=== PATIENT | female | born 1930 | race Caucasian/White ===

== ENCOUNTER 2016-10-31 08:17 | Emergency (ER) | payer MEDICARE ==
[2016-10-31 08:22] VITALS: TEMP 99; BMI 29.2
--- NOTE | 2016-10-31 09:14 | DIRPT ---
CLINICAL DATA: Fall today going to the bathroom. Small laceration to forehead. EXAM: CT HEAD WITHOUT CONTRAST TECHNIQUE: Contiguous axial images were obtained from the base of the skull through the vertex without intravenous contrast. COMPARISON: 05/25/2016 FINDINGS: Soft tissue swelling over the forehead. No underlying calvarial abnormality. There is atrophy and chronic small vessel disease changes. No acute intracranial abnormality. Specifically, no hemorrhage, hydrocephalus, mass lesion, acute infarction, or significant intracranial injury. No acute calvarial abnormality. Visualized paranasal sinuses and mastoids clear. Orbital soft tissues unremarkable. IMPRESSION: No acute intracranial abnormality. Atrophy, chronic microvascular disease. Electronically Signed By: Casper Haddad M.D. On: 10/31/2016 09:12
--- NOTE | 2016-10-31 09:23 | EDPRACDOC ---
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 Pain Severity: Reports: Moderate Injuries/Pain Location: Reports: head Reason for Fall: Reports: lost balance Loss of Consciousness: no loss of consciousness Modifying Factors: improves with: movement Associated Symptoms (Fall): Reports: headache. Denies: abdominal pain, chest pain, confusion, dizziness, lightheadedness, muscle spasms, nausea/vomiting, neck pain, ringing in ears, seizures, shortness of breath, slurred speech, trouble walking, vision changes Allergies/Adverse Reactions: Allergies No Known Allergies Allergy (Verified 10/31/16 08:19) Home Medications: Ambulatory Orders Aspirin (Enteric Coated) [Halfprin] 81 mg PO DAILY 06/09/14 Atorvastatin [Lipitor 20 mg Tablet] 40 mg PO HS 06/09/14 Citalopram (anti-depressant) [Celexa] 40 mg PO HS 06/09/14 Metoprolol Succinate [Toprol Xl] 25 mg PO DAILY 06/09/14 Mirtazapine [Remeron] 15 mg PO HS 06/09/14 Nitroglycerin [Nitrostat] 0.4 mg SL [id number] PRN 06/09/14 Omeprazole [Prilosec] 20 mg PO BID 07/07/14 Cholecalciferol (Vitamin D3) [Vitamin D3] 5,000 unit PO DAILY 05/16/15 Fluticasone Propionate [Flovent Hfa-110] 2 puff INH BID 04/17/16 Furosemide [Lasix] 40 mg PO BID 04/17/16 Oxybutynin [Ditropan] 5 mg PO BID 04/17/16 Tramadol HCl [Ultram] 50 mg PO BID 05/17/16 Gabapentin [Neurontin] 200 mg PO TID #180 capsule 05/27/16 Acetaminophen [Tylenol] 650 mg PO QID PRN 09/12/16 Albuterol Sulfate 2.5 mg NEB Q6H 09/12/16 Alendronate Sodium [Fosamax] 70 mg PO MO 09/12/16 L. Rhamnosus GG/Inulin [Culturelle Capsule] 1 cap PO BID 09/12/16 Ondansetron HCl [Zofran] 4 mg PO Q6H PRN 09/12/16 POTASSIUM CHLORIDE Tablet [K-DUR 20 mEq Tablet*] 20 meq PO DAILY 09/12/16 Alprazolam [Xanax] 0.25 mg PO BID PRN #60 tablet 09/19/16 Oxycodone Immediate Release [Oxycodone Immediate Release (OxyIR)] 5 mg PO Q6H PRN #60 tablet 09/19/16 Carbidopa/Levodopa [Carbidopa-Levo ER 25-100 Tab] 1 tab PO DAILY 10/31/16 Magnesium Hydroxide [Milk of Magnesia] 30 ml PO DAILY PRN 10/31/16 ED Past Medical History - History Reviewed Yes Nurses notes reviewed and agree except as marked - Patient Medical History Neurological History: Reports: Dementia, Toxic Encephalopathy (History of) Cardiac History: Reports: Coronary Artery Disease, Atrial Fibrillation, Hypertension, Congestive Heart Failure (Echo from 05/17/2015 revealed diastolic failure with an EF of 65-70%.), Heart Attack (2012), Cardiac Catheterization ( with stent placement), Hypercholesterolemia Respiratory History: Reports: COPD, Aspiration PneumoniaComment Only: Pneumonia (bronchitis twice in last 4 months) GI/ History: Reports: Renal Disease (acute renal failure), Urinary Tract Infection, Gastroesophageal Reflux, Ulcer, Diverticulosis (History of peptic ulcers hiatal hernia) Musculoskeletal History: Reports: Arthritis Psychological History: Reports: Depression, Anxiety. Denies: Substance Use Disorder Systemic History: Denies: Cancer, Anemia Surgical History: Reports: Cardiac Catheterization (with stent placement), Tonsillectomy/Adnoidectomy, Other (Left hip surgery 2013, left humeral fracture in 2014.) - Family Medical History Reports: Cancer (Father: stomach cancer.brother and sister), Cardiac Disorders ( Mother had an CT.). Denies: Hypertension, Diabetes, Stroke - Social Medical History Smoking Status: Former smoker Social History: Denies: Substance Use Disorder ETOH: None Substance Abuse: None Lives With: Family Lives In: Home EDM Review of Systems - Review of Systems Constitutional: negative: Chills, Fever Eyes: negative: Blurred Vision, Double Vision Ears: negative: Drainage Throat: negative: Pain Nose: negative: Congestion, Discharge Respiratory: negative: Cough, Shortness of Breath, Wheezing Cardiovascular: negative: Chest Pain, Palpitations Gastrointestinal: negative: Diarrhea, Nausea, Vomiting Genitourinary: negative: Dysuria, Frequency Neurological: Headache. negative: Dizziness, Numbness, Weakness Musculoskeletal: No Symptoms Reported Integumentary: Wound - Physical Exam Constitutional: Alert (Awake), No apparent distress Oriented to: Time, Person, Place Last recorded Vital Signs: Last Vital Signs Temp 99.0 F 10/31/16 08:19 Pulse 84 10/31/16 08:19 Resp 19 10/31/16 08:19 BP 136/60 10/31/16 08:19 Pulse Ox 92 10/31/16 08:19 Oxygen Pulse Oxygen Saturation 92 O2 Device Room Air Oxygen Flow Rate Fraction of Inspired Oxygen ( FIO2) - HEENT Head: Laceration (3 CM LAC MID FORHEAD, THROUGH SUBCUT TISSUE) Eye Exam: Normal (PERRL, EOMI, Sclera white) Oropharynx: Normal (Pharynx:Moist without exudate,Gums-no swelling) Tympanic Membrane: Normal ENT EAC: Normal TMJ: Normal Nose: No Symptoms Reported (septum midline) Neck: Normal (FROM, trachea at midline) - Respiratory/Cardiovascular Respiratory: Normal - CTA (BBS clear to auscultation without adventitious sounds ) Cardiovascular: Normal (RRR without murmur, gallop or rub) - GI Auscultation: Normal (NABS) Palpation: Normal (Soft,No rebound or guarding, non distended) Tenderness: Non tender Ahumada's Sign: Negative - Musculoskeletal Back: Normal (Non-Tender) Extremities: Normal (Normal tone, Pulses 2+ No cyanosis or edema, FROM) - Integumentary Skin: Warm, Dry, Other (MULTIPLE SKIN TEARS TO RIGHT HAND, FOREARM, ELBOW) Lymphatics: Normal (no adenopathy) - Neurologic Memory Impaired: Normal Motor Function: Normal (Normal tone, Pulses 2+ No cyanosis or edema, FROM) Cranial Nerve: Normal (CN II-X11 intact sensation, strength 5/5) Cerebellar: Normal Mood Description: Normal Perception: Normal ED Injury/Fall Exam - Physical Exam Head Injury: lacerations Extremity Exam: no evidence of injury Skin: Warm, Dry, Other (MULTIPLE SKIN TEARS TO RIGHT LOWER ARM) - Carolyn Coma Score Best Eye Response (Carolyn): (4) open spontaneously Best Verbal Response ([place]): (5) oriented Best Motor Response (Carolyn): (6) obeys commands Carolyn Total: 15 ED Procedures - Suture/Laceration FOREHEAD Wound Length (cm): 3 Wound's Depth, Shape: linear Wound Explored: clean Irrigated w/ Saline (ccs): 20 Betadine Prep?: Yes Anesthesia: Lidocaine w/ Epi Volume Anesthetic (ccs): 7 Wound Repaired With: Sutures Suture Size/Type: 5:0, nylon Number of Sutures: 9 (RUNNING) Layer Closure?: No Sterile Dressing Applied?: Yes - Differential Diagnosis Contusion, Fall, Fracture, ICH, Laceration, Mechanical Fall - Diagnostic Imaging CT HEAD Image interpreted by: Radiologist CT HEAD WITHOUT CONTRAST TECHNIQUE: Contiguous axial images were obtained from the base of the skull through the vertex without intravenous contrast. COMPARISON: 05/25/2016 FINDINGS: Soft tissue swelling over the forehead. No underlying calvarial abnormality. There is atrophy and chronic small vessel disease changes. No acute intracranial abnormality. Specifically, no hemorrhage, hydrocephalus, mass lesion, acute infarction, or significant intracranial injury. No acute calvarial abnormality. Visualized paranasal sinuses and mastoids clear. Orbital soft tissues unremarkable. IMPRESSION: No acute intracranial abnormality. Atrophy, chronic microvascular disease. CT C-SPINE Image interpreted by: Radiologist CT CERVICAL SPINE WITHOUT CONTRAST TECHNIQUE: Multidetector CT imaging of the cervical spine was performed without intravenous contrast. Multiplanar CT image reconstructions were also generated. COMPARISON: None. FINDINGS: There is no apparent fracture. There is 2 mm of anterolisthesis of C4 on C5, felt to be due to underlying spondylosis. There is no other spondylolisthesis. Prevertebral soft tissues and predental space regions are normal. There is multilevel facet hypertrophy. Exit foraminal narrowing due to facet hypertrophy is marked at C3-4 on the left and at C4-5 on the left. Exit foraminal narrowing is moderate at C5-6 on the left. There is no nydia disc extrusion or high-grade stenosis. There are foci of carotid artery calcification bilaterally. There is also bilateral distal vertebral artery calcification. IMPRESSION: Multilevel arthropathy. Slight spondylolisthesis at C4-5 is felt to be due to underlying spondylosis. No spondylolisthesis. No fracture. Foci of carotid and vertebral artery calcification bilaterally. Decision Time to Discharge: 11:28 - Departure Disposition: Home Condition: Stable Final Diagnosis: LAC FOREHEAD, 3 CM, SIMPLE, Multiple skin tears, Accidental fall Instructions: Laceration (ED) Education/Counseling Given To: Patient, Family Member Education/Counseling Given Regarding: Diagnosis, Treatment, Prognosis, Follow Up Referrals: None,No Provider [Primary Care Provider] - One Week Additional Instructions: Keep wound clean and dry, wash daily with soap and water, cover with antibiotic ointment and clean bandage. Have sutures removed in 10-14 days, use Tylenol or Motrin as needed for pain. Return to the ED for any worsening symptoms or concerns.
[2016-10-31] MEDS ORDERED: Lidocaine 2%-Epinephrine 1:100,000 20ml vial INF ONE (09:24)
--- NOTE | 2016-10-31 09:49 | DIRPT ---
CLINICAL DATA: Pain following fall EXAM: CT CERVICAL SPINE WITHOUT CONTRAST TECHNIQUE: Multidetector CT imaging of the cervical spine was performed without intravenous contrast. Multiplanar CT image reconstructions were also generated. COMPARISON: None. FINDINGS: There is no apparent fracture. There is 2 mm of anterolisthesis of C4 on C5, felt to be due to underlying spondylosis. There is no other spondylolisthesis. Prevertebral soft tissues and predental space regions are normal. There is multilevel facet hypertrophy. Exit foraminal narrowing due to facet hypertrophy is marked at C3-4 on the left and at C4-5 on the left. Exit foraminal narrowing is moderate at C5-6 on the left. There is no nydia disc extrusion or high-grade stenosis. There are foci of carotid artery calcification bilaterally. There is also bilateral distal vertebral artery calcification. IMPRESSION: Multilevel arthropathy. Slight spondylolisthesis at C4-5 is felt to be due to underlying spondylosis. No spondylolisthesis. No fracture. Foci of carotid and vertebral artery calcification bilaterally. Electronically Signed By: Kyle Erickson III, M.D. On: 10/31/2016 09:46
[2016-10-31 11:47] VITALS: BP 121/62; PULSE 72
== END 2016-10-31 11:46 | disposition home or self-care (01) ==
LOC: ED 08:17
DX: S01.81XA Laceration without foreign body of other part of head, initial encounter (principal); S51.811A Laceration without foreign body of right forearm, initial encounter; W19.XXXA Unspecified fall, initial encounter
CPT/HCPCS: 12013; 70450; 72125; 99284; J3490